=== PATIENT | male | born 1955 | race Caucasian/White ===

== ENCOUNTER 2017-02-22 14:21 | Emergency (ER) | payer OTHER ==
[2017-02-22] MEDS ORDERED: PROCHLORPERAZINE EDISYLATE INJ 10 MG/2 ML VIAL IV ONE (14:45)
[2017-02-22] MEDS ORDERED: DIPHENHYDRAMINE HCL 50 MG/ML VIAL IV ONE (14:45)
[2017-02-22] MEDS ORDERED: MECLIZINE HCL 25 MG TABLET PO ONE (14:46)
--- NOTE | 2017-02-22 14:48 | ER Document Report ---
ED Medical Screen (RME) - General Chief Complaint: Headache Stated Complaint: HEADACHE Time Seen by Provider: 02/22/17 14:40 Mode of Arrival: Ambulatory Information source: Patient Notes: 61 yr old male presents with complaints og headache dizziness. pt denies any fevers or chills I have greeted and performed a rapid initial assessment of this patient. A comprehensive ED assessment and evaluation of the patient, analysis of test results and completion of the medical decision making process will be conducted by additional ED providers. PHYSICAL EXAMINATION: GENERAL: Well-appearing, well-nourished and in no acute distress. HEAD: Atraumatic, normocephalic. EYES: Pupils equal round extraocular movements intact, conjunctiva are normal. ENT: Nares patent NECK: Normal range of motion LUNGS: No respiratory distress Musculoskeletal: Normal range of motion NEUROLOGICAL: Normal speech, normal gait. PSYCH: Normal mood, normal affect. SKIN: Warm, Dry, normal turgor, no rashes or lesions noted. TRAVEL OUTSIDE OF THE [place] IN LAST 30 DAYS: No - Related Data Allergies/Adverse Reactions: No Known Allergies Allergy (Verified 02/22/17 14:34) Past Medical History - Social History Chew tobacco use (# tins/day): No Frequency of alcohol use: Rare Drug Abuse: None - Past Medical History Cardiac Medical History: Reports: Hx Hypercholesterolemia Denies: Hx Coronary Artery Disease - high chol , Hx Heart Attack, Hx Hypertension Pulmonary Medical History: Denies: Hx Asthma, Hx Bronchitis, Hx COPD, Hx Pneumonia Neurological Medical History: Denies: Hx Cerebrovascular Accident, Hx Seizures Renal/ Medical History: Denies: Hx Peritoneal Dialysis Musculoskeltal Medical History: Denies Hx Arthritis Surgical Hx: Negative - Immunizations Hx Diphtheria, Pertussis, Tetanus Vaccination: Yes Physical Exam - Vital signs Vitals: Temp Pulse Resp BP Pulse Ox 97.8 F 55 L 18 132/89 H 99 02/22/17 14:24 02/22/17 14:24 02/22/17 14:24 02/22/17 14:24 02/22/17 14:24 Course - Vital Signs Vital signs: Temp Pulse Resp BP Pulse Ox 97.8 F 55 L 18 132/89 H 99 02/22/17 14:24 02/22/17 14:24 02/22/17 14:24 02/22/17 14:24 02/22/17 14:24
--- NOTE | 2017-02-22 15:32 | ER Document Report ---
ED Headache - General Chief Complaint: Headache Stated Complaint: HEADACHE Time Seen by Provider: 02/22/17 14:40 Mode of Arrival: Ambulatory Information source: Patient TRAVEL OUTSIDE OF THE [place] IN LAST 30 DAYS: No - HPI Patient complains to provider of: Headache Patient reports: No: Brain neoplasm, Frequent migraines, Hx chronic headaches, Occasional migraines, Prior CVA, Prior hemorrhage, Prior TBI, [employer] Shunt Onset: Last week Onset was: Gradual Timing: Still present - SEVERITY FLUCTUATES Quality of pain: Achy, Dull Severity: Moderate Context: denies: CO exposure, Head injury, Insect bite, Meningitis exposure, Tick bite Associated symptoms: Dizzy, Nausea/vomiting - NAUSEA ONLY, NO EMESIS, Trouble walking - ABLE TO WALK STRAIGHT LINE, BUT WITH EFFORT. denies: Chills, Confusion, Fever, Photophobia Similar symptoms previously: Yes - YEARS AGO, LASTED ABOUT A WEEK Recently seen / treated by doctor: No - Related Data Allergies/Adverse Reactions: No Known Allergies Allergy (Verified 02/22/17 14:34) Past Medical History - General Information source: Patient - Social History Smoking Status: Never Smoker Chew tobacco use (# tins/day): No Frequency of alcohol use: Rare Drug Abuse: None Lives with: Spouse/Significant other Family History: None Patient has suicidal ideation: No Patient has homicidal ideation: No - Past Medical History Cardiac Medical History: Reports: Hx Hypercholesterolemia Denies: Hx Coronary Artery Disease - high chol , Hx Heart Attack, Hx Hypertension Pulmonary Medical History: Denies: Hx Asthma, Hx Bronchitis, Hx COPD, Hx Pneumonia Neurological Medical History: Denies: Hx Cerebrovascular Accident, Hx Seizures Renal/ Medical History: Denies: Hx Peritoneal Dialysis Musculoskeltal Medical History: Denies Hx Arthritis Surgical Hx: Negative - Immunizations Hx Diphtheria, Pertussis, Tetanus Vaccination: Yes Hx Pneumococcal Vaccination: 06/23/10 Physical Exam - Vital signs Vitals: Temp Pulse Resp BP Pulse Ox 97.8 F 55 L 18 132/89 H 99 02/22/17 14:24 02/22/17 14:24 02/22/17 14:24 02/22/17 14:24 02/22/17 14:24 Interpretation: Bradycardic. No: Tachypneic, Febrile Course - Re-evaluation Re-evalutation: 02/22/17 19:50 Patient reports headache is somewhat improved. Results of laboratory and radiographic studies discussed with patient and spouse. Will continue hydration and medical therapies. - Vital Signs Vital signs: Temp Pulse Resp BP Pulse Ox 97.8 F 57 L 16 130/79 H 95 02/22/17 14:24 02/22/17 18:00 02/22/17 18:00 02/22/17 18:00 02/22/17 18:00 - Laboratory Result Diagrams: 02/22/17 15:03 02/22/17 15:03 Laboratory results interpreted by me: 02/22/17 15:03 Creatinine 1.28 H Est GFR (Non-Af Amer) 57 L - Diagnostic Test Radiology reviewed: Image reviewed, Reports reviewed Discharge - Discharge Clinical Impression: Headache Qualifiers: Headache type: unspecified Headache chronicity pattern: acute headache Intractability: not intractable Qualified Code(s): R51 - Headache Condition: Stable Disposition: HOME, SELF-CARE Instructions: Antinausea Medication ([facility]), Intravenous Compazine for Headaches ([facility]), Use of Diphenhydramine, Headache ([facility]), Toradol Injection ([facility]), Reglan ( [facility]) Additional Instructions: REST, DRINK PLENTY OF FLUIDS. YOU MAY TAKE ZOFRAN FOR NAUSEA CONTROL IF NEEDED. YOU MAY TAKE FIORICET FOR HEADACHE PAIN IF NEEDED. FOLLOW UP WITH DR. CHURCHILL IF HEADACHE IS NOT RESOLVED BY . RETURN TO E.R. IF YOU GET WORSE IN ANY WAY, ANY TIME. Prescriptions: Butalb/Acetaminophen/Caffeine [Fioricet (50-325-40 mg) Tablet] 1 - 2 tab PO Q4H PRN #20 each PRN Reason: For Headache Ondansetron [Zofran Odt 4 mg Tablet] 1 - 2 tab PO Q4H #10 tab.rapdis Referrals: MITUL CHURCHILL MD [Primary Care Provider] - Follow up as needed
[2017-02-22 15:33] LABS: ABSOLUTE BASOPHILS # (AUTO) 0.1 10^3/uL (0.0-0.2); ABSOLUTE EOSINOPHILS # (AUTO) 0.3 10^3/uL (0.0-0.6); ABSOLUTE LYMPHOCYTES (AUTO) 2.7 10^3/uL (0.5-4.7); ABSOLUTE MONOCYTES (AUTO) 0.6 10^3/uL (0.1-1.4); BASOPHILS % (AUTO) 0.8 % (0-2); EOSINOPHILS % (AUTO) 4.1 % (0-6); HEMATOCRIT 40.3 % (37.9-51.0); HEMOGLOBIN 13.5 g/dL (13.5-17.0); HGB HCT DIFFERENCE 0.2; LYMPHOCYTES % (AUTO) 40.1 % (13-45); MEAN CORPUSCULAR HGB CONC 33.5 g/dL (32.0-36.0); MEAN CORPUSCULAR VOLUME 92 fl (80-97); MONOCYTES % (AUTO) 9.6 % (3-13); RED BLOOD COUNT 4.37 10^6/uL (4.35-5.55); RED CELL DISTRIBUTION WIDTH 13.3 % (11.5-14.0); SEGMENTED NEUTROPHILS % (AUTO) 45.4 % (42-78); WHITE BLOOD COUNT 6.7 10^3/uL (4.0-10.5)
[2017-02-22 15:49] LABS: APPEARANCE,URINE CLEAR; BILIRUBIN,URINE NEGATIVE (NEGATIVE); GLUCOSE, URINE NEGATIVE (NEGATIVE); KETONES,URINE NEGATIVE (NEGATIVE); LEUKOCYTE ESTERASE,URINE NEGATIVE (NEGATIVE); NITRITE,URINE NEGATIVE (NEGATIVE); PROTEIN,URINE NEGATIVE (NEGATIVE); URINE SPECIFIC GRAVITY 1.008; UROBILINOGEN,URINE NEGATIVE mg/dL (<2.0)
[2017-02-22] MEDS ORDERED: NORMAL SALINE 1000 ML 1,000 ML IV ONE ×2 (15:49→19:48)
[2017-02-22 15:51] LABS: ALANINE AMINOTRANSFERASE 35 U/L (21-72); ALBUMIN 4.1 g/dL (3.5-5.0); ALKALINE PHOSPHATASE 55 U/L (38-126); ANION GAP 9 (5-19); ASPARTATE AMINO TRANSFERASE 31 U/L (17-59); BILIRUBIN,DIRECT 0.3 mg/dL (0.0-0.4); BILIRUBIN,TOTAL 0.5 mg/dL (0.2-1.3); BLOOD UREA NITROGEN 19 mg/dL (7-20); CALCIUM 9.6 mg/dL (8.4-10.2); CARBON DIOXIDE 30 mmol/L (22-30); CHLORIDE 102 mmol/L (98-107); CREATINE KINASE 81 U/L (55-170); CREATININE RESULT 1.28 mg/dL (0.52-1.25); GLUCOSE 93 mg/dL (75-110); POTASSIUM 4.8 mmol/L (3.6-5.0); SODIUM 141.3 mmol/L (137-145); TOTAL PROTEIN 6.8 g/dL (6.3-8.2)
[2017-02-22 16:04] LABS: TROPONIN I < 0.012 ng/mL
--- NOTE | 2017-02-22 17:33 | RADIOLOGY REPORT (SQ) ---
EXAM DESCRIPTION: CT HEAD COMBO COMPLETED DATE/TIME: 02/22/2017 5:22 pm REASON FOR STUDY: headache COMPARISON: None. TECHNIQUE: Axial images acquired through the brain without and with intravenous contrast. Images re viewed with bone, brain and subdural windows. Images stored on PACS. All CT scanners at this facility use dose modulation, iterative reconstruction, and/or weight based d osing when appropriate to reduce radiation dose to as low as reasonably achievable (ALARA). [facility]: Dose Right [facility]: CareDose [facility]: Dose Right [facility]: Teradose 4D [facility]: [employer], CONTRAST TYPE AND DOSE: contrast/concentration: Isovue 370.00 mg/ml; Total Contrast Delivered: 49.0 ml; Total Saline Delivered: 47.0 ml RENAL FUNCTION: Creatinine 1.3 RADIATION DOSE: Up-to-date CT equipment and radiation dose reduction techniques were employed. CTDIv ol: 64.6 mGy. DLP: 2584 mGy-cm.. LIMITATIONS: None. FINDINGS: VENTRICLES: Normal size and contour. CEREBRUM: No masses. No hemorrhage. No midline shift. Normal saenz/white matter differentiation. No ev idence for acute infarction. No enhancing lesions. CEREBELLUM: No masses. No hemorrhage. No alteration of density. No evidence for acute infarction. No enhancing lesions. EXTRA-AXIAL SPACES: No fluid collections. No enhancing lesions. ORBITS AND GLOBE: No intra- or extraconal masses. Normal contour of globe without masses. CALVARIUM: No fracture. PARANASAL SINUSES: No fluid or mucosal thickening. SOFT TISSUES: No mass or hematoma. OTHER: No other significant finding. IMPRESSION: NORMAL BRAIN CT WITHOUT AND WITH CONTRAST. TECHNICAL DOCUMENTATION: JOB ID: [id number] Quality ID # [id number]: Final reports with documentation of one or more dose reduction techniques (e.g., Au tomated exposure control, adjustment of the mA and/or kV according to patient size, use of iterative reconstruction technique) 2010 [employer]- All Rights Reserved
[2017-02-22 18:13] VITALS: BP 130/79
[2017-02-22] MEDS ORDERED: KETOROLAC TROMETHAMINE INJ/PF 30 MG/1 ML SDV IV ONE (19:48)
[2017-02-22] MEDS ORDERED: METOCLOPRAMIDE HCL INJ/PF 10 MG/2 ML SDV IV ONE (19:49)
== END 2017-02-22 22:07 | disposition home or self-care (01) ==
LOC: ER 14:21
DX: R51 Headache (principal)
CPT/HCPCS: 99284; 96361; 96374; 96375; 36415; 82553; 82550; 85025; 80053; 81001; 84484; 70470; J1200; J1885; J2765; J0780; J7030

== ENCOUNTER → 2018-12-01 | Outpatient (CLI) | payer OTHER ==
--- NOTE | 2018-12-01 15:46 | RADIOLOGY REPORT (SQ) ---
EXAM DESCRIPTION: VENOUS BILATERAL LOWER COMPLETED DATE/TIME: 12/01/2018 3:37 pm REASON FOR STUDY: EDEMA R60.0 LOCALIZED EDEMA M79.10 MYALGIA, UNSPECIFIED SITE COMPARISON: None. TECHNIQUE: Dynamic and static saenz scale and color images acquired of both lower extremity venous sy stems. Selected spectral images acquired with additional compression and augmentation maneuvers. Imag es stored on PACS. LIMITATIONS: None. FINDINGS: RIGHT LEG COMMON FEMORAL AND FEMORAL: Normal phasicity, compression and augmentation. No visualized echogenic m aterial on saenz scale. No defects on color images. POPLITEAL: Normal compression and augmentation. No visualized echogenic material on saenz scale. No de fects on color images. CALF VESSELS: Normal compression and augmentation. No visualized echogenic material on saenz scale. No defects on color image. GSV AND SSV: Normal compression. No visualized echogenic material on saenz scale. No defects on color images. ANY DEEP VENOUS INSUFFICIENCY: No. ANY EVIDENCE OF POPLITEAL CYST: No. OTHER: No other significant finding. LEFT LEG COMMON FEMORAL AND FEMORAL: Normal phasicity, compression and augmentation. No visualized echogenic m aterial on saenz scale. No defects on color images. POPLITEAL: Normal compression and augmentation. No visualized echogenic material on saenz scale. No de fects on color images. CALF VESSELS: Normal compression and augmentation. No visualized echogenic material on saenz scale. No defects on color images. GSV AND SSV: Normal compression. No visualized echogenic material on saenz scale. No defects on color images. ANY DEEP VENOUS INSUFFICIENCY: No. ANY EVIDENCE POPLITEAL CYST: No. OTHER: No other significant finding. IMPRESSION: NO EVIDENCE DVT OR SVT IN EITHER LEG. COMMENT: Preliminary report was called by the technologist to the referring clinician's office at th e time of the exam. TECHNICAL DOCUMENTATION: JOB ID: [id number] [employer]- All Rights Reserved Reading location - IP/workstation name: [email or web address]
== END ==
LOC: RAD 13:17
PROVIDERS: ATTEND Student in an Organized Health Care Education/Training Program
DX: R60.0 Localized edema (principal); M79.10 Myalgia, unspecified site
CPT/HCPCS: 93970

== ENCOUNTER 2019-03-25 09:21 | Inpatient (IN) | payer OTHER ==
[2019-03-25] MEDS ORDERED: NORMAL SALINE 250 ML IV PRN ×3 (09:26→10:52)
[2019-03-25] MEDS ORDERED: NORMAL SALINE 500 ML IV ONE (09:26)
--- NOTE | 2019-03-25 09:30 | ER Document Report ---
ED General - General Chief Complaint: Unresponsive Stated Complaint: UNRESPONSIVE Time Seen by Provider: 03/25/19 09:26 TRAVEL OUTSIDE OF THE [place] IN LAST 30 DAYS: No - HPI Notes: 61-year-old male presents with rectal bleeding and syncope. Patient brought by EMS, initially found unresponsive in his vehicle with a large amount of blood in the car seat. Apparently began to develop left lower quadrant pain and rectal bleeding last night, otherwise unquantified. States last week he had some hematuria that he underwent work-up for his an outpatient including a CT which she cannot report the results of but he states were "okay". Pain is sharp, gradual onset. He feels weak lightheaded. Denies any use of anticoagulants. No other modifying factors, no other associated symptoms, no other provocative or palliative factors. - Related Data Allergies/Adverse Reactions: No Known Allergies Allergy (Verified 02/22/17 14:34) Past Medical History - Social History Smoking Status: Unknown if Ever Smoked Drug Abuse: None Family History: None, Reviewed & Not Pertinent - Medical History Notes: Includes migraine headaches - Past Medical History Cardiac Medical History: Reports: Hx Hypercholesterolemia Denies: Hx Coronary Artery Disease - high chol , Hx Heart Attack, Hx Hypertension Pulmonary Medical History: Denies: Hx Asthma, Hx Bronchitis, Hx COPD, Hx Pneumonia Neurological Medical History: Denies: Hx Cerebrovascular Accident, Hx Seizures Renal/ Medical History: Denies: Hx Peritoneal Dialysis Musculoskeletal Medical History: Denies Hx Arthritis - Immunizations Hx Diphtheria, Pertussis, Tetanus Vaccination: Yes Hx Pneumococcal Vaccination: 06/23/10 Review of Systems - Review of Systems Notes: Review of systems as in the history of present illness, otherwise negative x 10 systems. Physical Exam - Vital signs Vitals: Resp 9 L 03/25/19 09:23 - Notes Notes: General: Well developed . HEENT: Normocephalic, atraumatic. Pupils equal round reactive to light. No JVD. Pale conjunctiva Chest: No trauma. Respiratory: Good air exchange, normal excursion. Cardiac: Regular rhythm. No murmurs or gallops. Abdomen: Soft, benign. Left lower quadrant moderately tender Back: No asymmetry or gross abnormality. Motor: Grossly normal power and tone. Neurologic: Alert, nonfocal. Cranial nerves II-12 are intact. Sensation intact. Vascular: Well perfused. Normal peripheral pulses. Skin: No petechiae or purpura. Course - Re-evaluation Re-evalutation: 03/25/19 09:30 3-year-old male presents with syncope and GI bleeding, clinical evidence of likely shock and hypotension. Appears to be compensated at this point. Large- bore IV access x2 is obtained. Plan proceed with volume resuscitation, packed red cells, conference of tawana guerrero, radiographic evaluation, reevaluate. 03/25/19 13:41 Labs reviewed, hemoglobin 9.9, most recent comparison from 2014 is 13. I suspect he is simply not hemodiluted out yet. Elevated creatinine at 1.2. Patient had several more episodes of transient alteration in mental status without any underlying arrhythmia. Blood pressure has been marginal at hovering between 92 and 110 systolic, map is been 70+. Clinically, patient has had continued GI bleeding and had a large bloody bowel movement while in the ED. He is being transfused empirically with packed red cells, will be admitted to the hospital service for continued evaluation, trending his hemoglobin, and likely colonoscopy. - Vital Signs Vital signs: Temp Pulse Resp BP Pulse Ox 98.2 F 77 16 100/66 98 03/25/19 12:52 03/25/19 12:52 03/25/19 12:52 03/25/19 12:52 03/25/19 12:52 - Laboratory Result Diagrams: 03/25/19 09:26 03/25/19 09:26 Laboratory results interpreted by me: 03/25/19 03/25/19 03/25/19 09:26 09:26 09:26 RBC 3.24 L Hgb 9.9 L Hct 29.7 L Lymph % (Auto) 46.6 H PT 15.8 H Chloride 111 H BUN 22 H Creatinine 1.27 H Est GFR (MDRD) Non-Af 57 L Glucose 132 H Calcium 7.9 L Alkaline Phosphatase 36 L Total Protein 5.5 L Albumin 3.0 L Crossmatch 03/25/19 09:26 RBC Hgb Hct Lymph % (Auto) PT Chloride BUN Creatinine Est GFR (MDRD) Non-Af Glucose Calcium Alkaline Phosphatase Total Protein Albumin Crossmatch See Detail - EKG Interpretation by Me EKG shows normal: Sinus rhythm, [place], Intervals, QRS Complexes Critical Care Note - Critical Care Note Total time excluding time spent on procedures (mins): 30 Comments: Does not include time spent for procedures. This includes resuscitation of patient with critical GI bleed, syncope, evaluation of labs, radiographs, EKGs, serial exams and discussing the case with admitting consultants. Discharge - Discharge Clinical Impression: GI bleed Qualifiers: GI bleed type/associated pathology: melena Qualified Code(s): K92.1 - Melena Condition: Serious Disposition: ADMITTED INPATIENT Admitting Provider: Hayden (Hospitalist) Unit Admitted: [facility]
[2019-03-25 09:39] LABS: ABSOLUTE EOSINOPHILS # (AUTO) 0.3 10^3/uL (0.0-0.6); ABSOLUTE LYMPHOCYTES (AUTO) 4.1 10^3/uL (0.5-4.7); ABSOLUTE MONOCYTES (AUTO) 0.5 10^3/uL (0.1-1.4); ABSOLUTE NEUT (AUTO) 3.9 10^3/uL (1.7-8.2); BASOPHILS % (AUTO) 0.5 % (0-2); EOSINOPHILS % (AUTO) 3.1 % (0-6); HEMATOCRIT 29.7 % (37.9-51.0); HEMOGLOBIN 9.9 g/dL (13.5-17.0); LYMPHOCYTES % (AUTO) 46.6 % (13-45); MEAN CORPUSCULAR HEMOGLOBIN 30.7 pg (27.0-33.4); MEAN CORPUSCULAR HGB CONC 33.4 g/dL (32.0-36.0); MEAN CORPUSCULAR VOLUME 92 fl (80-97); MONOCYTES % (AUTO) 5.8 % (3-13); PLATELET COUNT 185 10^3/uL (150-450); RED BLOOD COUNT 3.24 10^6/uL (4.35-5.55); RED CELL DISTRIBUTION WIDTH 13.1 % (11.5-14.0); TOTAL CELLS COUNTED % (AUTO) 100 %; WHITE BLOOD COUNT 8.9 10^3/uL (4.0-10.5)
[2019-03-25 09:48] LABS: INTERNATIONAL RATION (INR) 1.25; PROTHROMBIN TIME 15.8 SEC (11.4-15.4)
[2019-03-25 09:58] LABS: ALKALINE PHOSPHATASE 36 U/L (38-126); ANION GAP 6 (5-19); ASPARTATE AMINO TRANSFERASE 17 U/L (17-59); BILIRUBIN,TOTAL 0.5 mg/dL (0.2-1.3); BLOOD UREA NITROGEN 22 mg/dL (7-20); CALCIUM 7.9 mg/dL (8.4-10.2); CARBON DIOXIDE 22 mmol/L (22-30); CHLORIDE 111 mmol/L (98-107); GLUCOSE 132 mg/dL (75-110); POTASSIUM 3.7 mmol/L (3.6-5.0); TOTAL PROTEIN 5.5 g/dL (6.3-8.2)
--- NOTE | 2019-03-25 09:59 | RADIOLOGY REPORT (SQ) ---
EXAM DESCRIPTION: CHEST SINGLE VIEW COMPLETED DATE/TIME: 03/25/2019 9:50 am REASON FOR STUDY: Hypotension COMPARISON: None. EXAM PARAMETERS: NUMBER OF VIEWS: One view. TECHNIQUE: Single frontal radiographic view of the chest acquired. RADIATION DOSE: NA LIMITATIONS: None. FINDINGS: LUNGS AND PLEURA: No opacities, masses or pneumothorax. No pleural effusion. MEDIASTINUM AND HILAR STRUCTURES: No masses. Contour normal. HEART AND VASCULAR STRUCTURES: Heart normal in size. Normal vasculature. BONES: No acute findings. HARDWARE: None in the chest. OTHER: No other significant finding. IMPRESSION: NO ACUTE RADIOGRAPHIC FINDING IN THE CHEST. TECHNICAL DOCUMENTATION: JOB ID: [id number] [employer]- All Rights Reserved Reading location - IP/workstation name: [email or web address]
[2019-03-25] MEDS ORDERED: MIDAZOLAM 2 MG/2 ML INJ IV ONE ×12 (11:08→23:14)
[2019-03-25] MEDS ORDERED: FENTANYL CITRATE INJ/PF 100 MCG/2 ML AMPUL INJ ONE ×6 (11:09→23:13)
--- NOTE | 2019-03-25 12:26 | PDOC H&P ---
History of Present Illness Admission Date/PCP: 03/25/19 11:07 VENKAT PHILLIPS DO Patient complains of: Patient reports an episode of blood per rectum. Today it was associated with a syncopal episode. History of Present Illness: NAKITA VICTOR is a 63 year old male Past Medical History Cardiac Medical History: Reports: Hyperlipidema Denies: Coronary Artery Disease - high chol , Myocardial Infarction, Hypertension Pulmonary Medical History: Denies: Asthma, Bronchitis, Chronic Obstructive Pulmonary Disease (COPD), Pneumonia EENT Medical History: Denies: Ears, Nose, Throat Neurological Medical History: Reports: Migraine Denies: Seizures Endocrine Medical History: Denies: Diabetes Mellitus Type 2, Hypothyroidism Renal/ Medical History: Reports: Other - Hematuria with possible prostatic hyperplasia Denies: Chronic Kidney Disease, Nephrolithiasis Malignancy Medical History: Reports: None GI Medical History: Reports: Gastroesophageal Reflux Disease Musculoskeltal Medical History: Denies: Arthritis, Gout Skin Medical History: Denies: Eczema, Psoriasis Psychiatric Medical History: Denies: Alcohol Dependency, Depression, Substance Abuse, Tobacco Dependency Traumatic Medical History: Reports: None Hematology: Denies: Anemia, Bleeding Tendencies Infectious Medical History: Reports: None Past Surgical History Past Surgical History: Reports: Tonsillectomy, Other - Cystoscopy, colonoscopy Social History Information Source: Patient, Relative - Lives with: Family Smoking Status: Never Smoker Frequency of Alcohol Use: Occasional Hx Recreational Drug Use: No Hx Prescription Drug Abuse: No - Advance Directive Resuscitation Status: Full Code Surrogate healthcare decision maker:: The patient has been working on a living well at home. Please see ACP note. Family History Family History: CAD, COPD Parental Family History Reviewed: Yes Children Family History Reviewed: Yes Sibling(s) Family History Reviewed.: Yes Medication/Allergy Allergies/Adverse Reactions: No Known Allergies Allergy (Verified 02/22/17 14:34) Review of Systems Constitutional: PRESENT: anorexia, headache(s), weakness. ABSENT: fever(s), weight gain, weight loss Eyes: ABSENT: visual disturbances Ears: ABSENT: hearing changes Nose, Mouth, and Throat: ABSENT: headache(s), mouth pain, sore throat Cardiovascular: ABSENT: chest pain, dyspnea on exertion, edema, palpitations Respiratory: ABSENT: cough, dyspnea, hemoptysis Gastrointestinal: PRESENT: abdominal pain, constipation, melena, nausea, other - Reflux. ABSENT: vomiting Genitourinary: PRESENT: hematuria. ABSENT: difficulty urinating, dysuria Musculoskeletal: ABSENT: back pain, deformity, joint swelling Integumentary: ABSENT: diaphoresis, erythema, lesions, pruritus, rash, wounds Neurological: PRESENT: syncope - Secondary to blood loss. ABSENT: abnormal gait, abnormal speech, confusion, focal weakness, memory loss Psychiatric: ABSENT: anxiety, depression, hallucinations Endocrine: ABSENT: cold intolerance, heat intolerance, polydipsia, polyphagia, p olyuria Hematologic/Lymphatic: ABSENT: easy bleeding, easy bruising, lymphadenopathy Allergic/Immunologic: ABSENT: seasonal rhinorrhea Physical Exam Vital Signs: Temp Pulse Resp BP Pulse Ox 97.9 F 10 L 91/72 L 100 03/25/19 09:34 03/25/19 09:24 03/25/19 09:24 03/25/19 09:24 Intake & Output 03/24/19 03/25/19 03/26/19 06:59 06:59 06:59 Intake Total 500 Balance 500 Weight 83.7 kg General appearance: PRESENT: cooperative, mild distress, well-developed. ABSENT: obese Head exam: PRESENT: atraumatic, normocephalic Eye exam: PRESENT: conjunctiva pale, EOMI. ABSENT: scleral icterus Ear exam: PRESENT: normal external ear exam. ABSENT: bleeding, drainage Mouth exam: PRESENT: dry mucosa, tongue midline Teeth exam: ABSENT: poor dentation Neck exam: PRESENT: full ROM. ABSENT: lymphadenopathy, tenderness, tracheostomy Respiratory exam: PRESENT: symmetrical, unlabored. ABSENT: accessory muscle use, rales, rhonchi, tachypnea, wheezes Cardiovascular exam: PRESENT: RRR, +S1, +S2 GI/Abdominal exam: PRESENT: normal bowel sounds, soft, tenderness - Minimal in the lower abdomen. No epigastric discomfort.. ABSENT: distended, guarding Rectal exam: PRESENT: deferred Gentrourinary exam: ABSENT: indwelling catheter Extremities exam: PRESENT: full ROM. ABSENT: joint swelling, pedal edema, tenderness Musculoskeletal exam: PRESENT: ambulatory, full ROM, normal inspection Neurological exam: PRESENT: alert, awake, oriented to person, oriented to place, oriented to time, oriented to situation, CN II-XII grossly intact. ABSENT: motor sensory deficit Psychiatric exam: PRESENT: anxious - Somewhat anxious about current situation. Affect reflects his anxiety., appropriate affect. ABSENT: agitated Focused psych exam: ABSENT: delusional, restlessness Skin exam: PRESENT: dry, pallor, warm. ABSENT: rash Results Laboratory Results: 03/25/19 09:26 03/25/19 09:26 03/25/19 03/25/19 03/25/19 09:26 09:26 09:26 WBC 8.9 RBC 3.24 L Hgb 9.9 L Hct 29.7 L MCV 92 MCH 30.7 MCHC 33.4 RDW 13.1 Plt Count 185 Seg Neutrophils % 44.0 Sodium 138.8 Potassium 3.7 Chloride 111 H Carbon Dioxide 22 Anion Gap 6 BUN 22 H Creatinine 1.27 H Est GFR ( Amer) > 60 Glucose 132 H Calcium 7.9 L Total Bilirubin 0.5 AST 17 Alkaline Phosphatase 36 L Total Protein 5.5 L Albumin 3.0 L Blood Type A POSITIVE Antibody Screen NEGATIVE Impressions: Chest X-Ray 03/25/19 09:26 IMPRESSION: NO ACUTE RADIOGRAPHIC FINDING IN THE CHEST. Assessment and Plan - Diagnosis (1) GI bleed Qualifiers: GI bleed type/associated pathology: melena Qualified Code(s): K92.1 - Melen a Is this a current diagnosis for this admission?: Yes (2) Melena Is this a current diagnosis for this admission?: Yes (3) Acute blood loss anemia Is this a current diagnosis for this admission?: Yes (4) Syncope Qualifiers: Syncope type: unspecified Qualified Code(s): R55 - Syncope and collapse Is this a current diagnosis for this admission?: Yes (5) Hyperlipidemia Qualifiers: Hyperlipidemia type: pure hypercholesterolemia Qualified Code(s): E78.00 - Pure hypercholesterolemia, unspecified; E78.0 - Pure hypercholesterolemia Is this a current diagnosis for this admission?: Yes (6) Migraines Qualifiers: Migraine type: unspecified Status migrainosus presence: without status migrainosus Intractability: not intractable Qualified Code(s): G43.909 - Migraine, unspecified, not intractable, without status migrainosus Is this a current diagnosis for this admission?: Yes - Plan Summary Summary: Gastrointestinal bleed-the patient reports ongoing history of hematuria for which he is seeing his urologist. He has been struggling with constipation over the last several weeks. He has been using glycerin suppositories with good effect and initiated therapy with MiraLAX 4 days ago. Last night he reports having a large BM with dark-colored blood. He was feeling weak and poorly. He did not have any vomiting. He did have some crampy abdominal pain. He rested at home. He did not report any lightheadedness, dizziness or passing out. Today when they were dropping a car off at the [employer] dealership the patient had another large melanotic stool while sitting in the car waiting for his . She found him unconscious. The syncope was most likely related to acute blood loss. He has had several more bowel movements. He does not report significant abdominal pain except when crampy pain occurs indicating an oncoming bowel movement. He has not had any vomiting. He does not take anti-inflammatory drugs on a regular basis. He is not on steroids. He does take omeprazole fairl y regularly. His hemoglobin is decreased and with IV fluids I expect another significant drop. 2 units of packed red blood cells have already been ordered. He may need more. Consult was placed with Dr. Espinoza. I will keep the patient n.p.o. at this time and allow ice chips. We will hold his medications for this evening and likely be able to resume tomorrow. I explained the different presentations with upper and lower GI bleeding. The patient clearly states that the blood is dark. He did not report any clots. I will start Syncope-it is likely that the patient had a syncopal episode from acute blood loss causing hypotension. His blood pressure is borderline in the emergency department with a map at above 70. We will continue to monitor closely. Aggressive fluids and hydration are ordered. Hyperlipidemia-we will continue the atorvastatin 20 mg daily starting tomorrow night. Migraine headaches-the patient is on Trokendi XR 100 mg every evening for migraine prophylaxis. We will likely hold tonight's dose in anticipation of procedure. Will resume medication tomorrow. The patient will need to use his own as I do not believe this is on formulary. The patient is also on vitamins. We will await his GI bleeding work-up before resuming therapy. - Time Time Spent with patient: 35 or more minutes Medications reviewed and adjusted accordingly: Yes - Inpatient Certification Based on my medical assessment, after consideration of the patient's comorbidities, presenting symptoms, or acuity I expect that the services needed warrant INPATIENT care.: Yes I certify that my determination is in accordance with my understanding of Medicare's requirements for reasonable and necessary INPATIENT services [42 CFR 412.3e].: Yes Medical Necessity: Need Close Monitoring Due to Risk of Patient Decompensation, Need For IV Fluids, Need For Continuous Telemetry Monitoring, Other - Transfusion Post Hospital Care: D/C Mechanical Cad Drafter Documentation
--- NOTE | 2019-03-25 12:27 | ADVANCED CARE ---
- Diagnosis (1) GI bleed Diagnosis Current: Yes (2) Melena Diagnosis Current: Yes (3) Acute blood loss anemia Diagnosis Current: Yes (4) Syncope Diagnosis Current: Yes (5) Hyperlipidemia Diagnosis Current: Yes (6) Migraines Diagnosis Current: Yes Attendance: Patient, his as well as another couple. Resuscitation Status: Full Code Discussion: The patient indicated that he has started the paperwork for living well. We reviewed the healthcare proxy document contained in the admissions packet. I explained the ability to designated decision maker as well as a secondary decision maker. We also reviewed the fact that intubation and resuscitation is an immediate decision and this document will help with regard to ongoing treatment in the event that there is poor recovery. The patient states that he will work on this document during this hospitalization. Care Planning Goals: Complete healthcare proxy Document(s) Completed: None yet Time Spent: 20 minutes
[2019-03-25] MEDS ORDERED: NORMAL SALINE 1000 ML 1,000 ML IV PRN (13:01)
[2019-03-25] MEDS ORDERED: ONDANSETRON 4 MG TAB.RAPDIS PO PRN (13:05)
[2019-03-25] MEDS ORDERED: TEMAZEPAM 15 MG CAPSULE PO PRN (13:05)
[2019-03-25] MEDS ORDERED: PANTOPRAZOLE SODIUM 40 MG VIAL IV PRN (13:14)
[2019-03-25] MEDS ORDERED: NORMAL SALINE 100 ML with PANTOPRAZOLE SODIUM 80 MG IV PRN ×2 (13:22)
--- NOTE | 2019-03-25 14:22 | PDOC PROGRESS REPORT ---
Subjective Progress Note for:: 03/25/19 Subjective:: ICU Progress Note. Pt was transferred to the ICU after a rapid response was called. Pt is a 63 yo man who was admitted today for syncope due to acute blood loss anemia from an active GI bleed. He continues to have active bleeding and passing bloody stools and having BRBPR. He was also hypotenisive with an SBP in the 80s. Pt is getting his second unit of PRBC and is SBP is now in the 110s. He is currently awake and alert. Reason For Visit: GI BLEED Physical Exam Vital Signs: Temp Pulse Resp BP Pulse Ox 98.2 F 80 16 93/64 L 99 03/25/19 13:41 03/25/19 13:41 03/25/19 13:41 03/25/19 13:41 03/25/19 13:41 Intake & Output 03/24/19 03/25/19 03/26/19 06:59 06:59 06:59 Intake Total 500 Balance 500 Weight 82.7 kg General appearance: PRESENT: well-developed, well-nourished, other - pale appearing Head exam: PRESENT: atraumatic, normocephalic Respiratory exam: PRESENT: clear to auscultation anitha, unlabored Cardiovascular exam: PRESENT: RRR GI/Abdominal exam: PRESENT: soft - non-tender, non-distended Extremities exam: PRESENT: other - no edema Results Laboratory Results: 03/25/19 09:26 03/25/19 09:26 03/25/19 03/25/19 03/25/19 09:26 09:26 09:26 WBC 8.9 RBC 3.24 L Hgb 9.9 L Hct 29.7 L MCV 92 MCH 30.7 MCHC 33.4 RDW 13.1 Plt Count 185 Seg Neutrophils % 44.0 Sodium 138.8 Potassium 3.7 Chloride 111 H Carbon Dioxide 22 Anion Gap 6 BUN 22 H Creatinine 1.27 H Est GFR ( Amer) > 60 Glucose 132 H Calcium 7.9 L Total Bilirubin 0.5 AST 17 Alkaline Phosphatase 36 L Total Protein 5.5 L Albumin 3.0 L Blood Type A POSITIVE Antibody Screen NEGATIVE Impressions: Chest X-Ray 03/25/19 09:26 IMPRESSION: NO ACUTE RADIOGRAPHIC FINDING IN THE CHEST. Assessment & Plan - Diagnosis (1) Acute blood loss anemia Is this a current diagnosis for this admission?: Yes (2) GI bleed Qualifiers: GI bleed type/associated pathology: melena Qualified Code(s): K92.1 - Melena Is this a current diagnosis for this admission?: Yes (3) Hemorrhagic shock Is this a current diagnosis for this admission?: Yes Provider Note Provider Note: Assessment: Critically ill 63 yo man with hemorrhagic shock, acute blood loss anemia, acute GI bleed. Plan: 1. Respiratory: stable on nasal cannula. Will monitor respiratory status closely 2. CV: hypotension due to hemorrhagic shock from GI bleed. Pt is getting his second unit of PRBC. SBP is currently in the 110s 3. GI/Surgery: acute GI bleed, hemorrhagic shock. Surgery consulted. Will order a stat CT of abdomen and pelvis. Continue protonix drip 4. Heme: acute blood loss anemia. getting his second unit of PRBC. Will repeat an h/h and transfuse as neccessary 5. Nutrition: NPO 6. Prophylaxis: scds. No pharmacologic DVT prophylaxis due to acute bleeding. Critical care time= 50 min, excluding procedures
[2019-03-25] MEDS ORDERED: NORMAL SALINE 1000 ML 1,000 ML IV ONE (14:30)
--- NOTE | 2019-03-25 16:26 | PDOC CONSULTATION ---
Consultation Consult Date: 03/25/19 Provider Consulted: GYPSY MATUTE History of Present Illness Admission Date/PCP: 03/25/19 11:07 VENKAT PHILLIPS DO Patient complains of: Blood per rectum History of Present Illness: NAKITA VICTOR is a 63 year old male usual state of good health up until 2 days ago when he noted a large bowel movement consisting of very dark blood. No abdominal pain. No hematemesis. Patient has had subsequent further episodes of blood per rectum but in much smaller amounts. Patient has had presyncopal symptoms. He says he drinks up to couple of beers a day. No known history of cirrhosis. Patient is not on anticoagulation other than a daily aspirin. He occasionally uses NSAIDs for arthritis. No history of gastrointestinal bleed in the past. No family history of gastrointestinal malignancies. Past Medical History Cardiac Medical History: Reports: Hyperlipidema Denies: Coronary Artery Disease - high chol , Myocardial Infarction, Hypertension Pulmonary Medical History: Denies: Asthma, Bronchitis, Chronic Obstructive Pulmonary Disease (COPD), Pneumonia EENT Medical History: Denies: Ears, Nose, Throat Neurological Medical History: Reports: Migraine Denies: Seizures Endocrine Medical History: Denies: Diabetes Mellitus Type 2, Hypothyroidism Renal/ Medical History: Reports: Other - Hematuria with possible prostatic hyperplasia Denies: Chronic Kidney Disease, Nephrolithiasis Malignancy Medical History: Reports: None GI Medical History: Reports: Gastroesophageal Reflux Disease Musculoskeltal Medical History: Denies: Arthritis, Gout Skin Medical History: Denies: Eczema, Psoriasis Psychiatric Medical History: Denies: Alcohol Dependency, Depression, Substance Abuse, Tobacco Dependency Traumatic Medical History: Reports: None Hematology: Denies: Anemia, Bleeding Tendencies Infectious Medical History: Reports: None Past Surgical History Past Surgical History: Reports: Tonsillectomy, Other - Surgery for benign prostate disease. Social History Lives with: Family Smoking Status: Unknown if Ever Smoked Electronic Cigarette use?: No Frequency of Alcohol Use: Heavy - Couple of beers a day Hx Recreational Drug Use: No Drugs: None Hx Prescription Drug Abuse: No - Advance Directive Resuscitation Status: Full Code Family History Family History: None, Reviewed & Not Pertinent Parental Family History Reviewed: Yes Children Family History Reviewed: Yes Sibling(s) Family History Reviewed.: Yes Medication/Allergy Allergies/Adverse Reactions: No Known Allergies Allergy (Verified 02/22/17 14:34) Review of Systems All systems: reviewed and no additional remarkable complaints except as stated Constitutional: PRESENT: as per HPI Gastrointestinal: PRESENT: as per HPI Physical Exam Vital Signs: Temp Pulse Resp BP Pulse Ox 97.1 F 101 H 15 85/63 L 100 03/25/19 16:13 03/25/19 16:13 03/25/19 16:13 03/25/19 16:13 03/25/19 16:13 Intake & Output 03/24/19 03/25/19 03/26/19 06:59 06:59 06:59 Intake Total 550 Balance 550 Weight 82.7 kg General appearance: PRESENT: no acute distress, cooperative Eye exam: PRESENT: conjunctiva pink Neck exam: PRESENT: other - Supple with no masses and no tenderness Respiratory exam: PRESENT: clear to auscultation anitha Cardiovascular exam: PRESENT: RRR GI/Abdominal exam: PRESENT: other - Soft, nondistended, nontender to palpation. No palpable hepatosplenomegaly. No stigmata of portal hypertension. Neurological exam: PRESENT: alert, awake Psychiatric exam: PRESENT: appropriate affect Results Laboratory Results: 03/25/19 09:26 03/25/19 09:26 03/25/19 03/25/19 03/25/19 09:26 09:26 09:26 WBC 8.9 RBC 3.24 L Hgb 9.9 L Hct 29.7 L MCV 92 MCH 30.7 MCHC 33.4 RDW 13.1 Plt Count 185 Seg Neutrophils % 44.0 Sodium 138.8 Potassium 3.7 Chloride 111 H Carbon Dioxide 22 Anion Gap 6 BUN 22 H Creatinine 1.27 H Est GFR ( Amer) > 60 Glucose 132 H Calcium 7.9 L Total Bilirubin 0.5 AST 17 Alkaline Phosphatase 36 L Total Protein 5.5 L Albumin 3.0 L Blood Type A POSITIVE Antibody Screen NEGATIVE Impressions: Chest X-Ray 03/25/19 09:26 IMPRESSION: NO ACUTE RADIOGRAPHIC FINDING IN THE CHEST. Assessment & Plan - Diagnosis (1) GI bleed Qualifiers: GI bleed type/associated pathology: unspecified gastrointestinal hemorrhage type Qualified Code(s): K92.2 - Gastrointestinal hemorrhage, unspecified Is this a current diagnosis for this admission?: Yes Plan: With his recent episodes of bright red blood per rectum, suggestive of lower gastrointestinal bleed. Patient undergoing resuscitative measures with packed RBCs. Will obtain a stat bleeding scan. We will closely follow along with you.
--- NOTE | 2019-03-25 18:34 | RADIOLOGY REPORT (SQ) ---
EXAM DESCRIPTION: NM GI BLEED SCAN COMPLETED DATE/TIME: 03/25/2019 5:50 pm REASON FOR STUDY: marked hematochezia COMPARISON: None. RADIONUCLIDE AND DOSE: 24.6 millicuries Technetium-labeled red blood cells. The route of agent administration: Intravenous. TECHNIQUE: Serial arterial-phase images acquired for 80 seconds immediately following injection of r adionuclide. Additional 60 images acquired at 60 seconds per image. LIMITATIONS: None. FINDINGS: Flow images without focal areas of abnormal radionuclide location. Serial images show no abnormal accumulation of radionuclide up to 2 hours. IMPRESSION: NORMAL RADIONUCLIDE GASTROINTESTINAL BLEEDING STUDY. TECHNICAL DOCUMENTATION: JOB ID: [id number] [employer]- All Rights Reserved Reading location - IP/workstation name: [email or web address]
--- NOTE | 2019-03-25 18:36 | PDOC PROGRESS REPORT ---
Subjective Progress Note for:: 03/25/19 Reason For Visit: GI BLEED WITH ACUTE BLOOD LOSS ANEMIA Physical Exam Vital Signs: Temp Pulse Resp BP Pulse Ox 97.2 F 87 15 110/79 100 03/25/19 16:28 03/25/19 17:07 03/25/19 18:03 03/25/19 18:03 03/25/19 18:03 Intake & Output 03/24/19 03/25/19 03/26/19 06:59 06:59 06:59 Intake Total 550 Output Total 200 Balance 350 Weight 82.7 kg Results Laboratory Results: 03/25/19 09:26 03/25/19 09:26 03/25/19 03/25/19 03/25/19 09:26 09:26 09:26 WBC 8.9 RBC 3.24 L Hgb 9.9 L Hct 29.7 L MCV 92 MCH 30.7 MCHC 33.4 RDW 13.1 Plt Count 185 Seg Neutrophils % 44.0 Sodium 138.8 Potassium 3.7 Chloride 111 H Carbon Dioxide 22 Anion Gap 6 BUN 22 H Creatinine 1.27 H Est GFR ( Amer) > 60 Glucose 132 H Calcium 7.9 L Total Bilirubin 0.5 AST 17 Alkaline Phosphatase 36 L Total Protein 5.5 L Albumin 3.0 L Blood Type A POSITIVE Antibody Screen NEGATIVE Impressions: Chest X-Ray 03/25/19 09:26 IMPRESSION: NO ACUTE RADIOGRAPHIC FINDING IN THE CHEST. Assessment & Plan - Diagnosis (1) GI bleed Qualifiers: GI bleed type/associated pathology: unspecified gastrointestinal hemorrhage type Qualified Code(s): K92.2 - Gastrointestinal hemorrhage, unspecified Is this a current diagnosis for this admission?: Yes Plan: Tagged RBC scan is negative at 2 hours. Patient's gastrointestinal bleed has likely stopped. We will plan an upper endoscopy to exclude upper gastrointestinal source. Discussed with the patient the risk and benefits of the procedure including risk of intestinal injury, bleeding, aspiration, heart lung complications.
[2019-03-25] MEDS ORDERED: ONDANSETRON HCL INJ/PF 4 MG/2 ML SDV ONE ×2 (18:54→21:36)
[2019-03-25] MEDS ORDERED: DIPHENHYDRAMINE HCL 50 MG/ML VIAL ONE ×2 (18:54→21:36)
[2019-03-25] MEDS ORDERED: FLUMAZENIL INJ 0.5 MG/5 ML VIAL ONE ×3 (18:55→21:37)
[2019-03-25] MEDS ORDERED: NALOXONE HCL INJ/PF 0.4 MG/1 ML SDV ONE ×2 (18:55→21:37)
[2019-03-25] MEDS ORDERED: FENTANYL CITRATE INJ/PF 100 MCG/2 ML AMPUL ONE ×2 (18:55→21:36)
[2019-03-25] MEDS ORDERED: MIDAZOLAM 2 MG/2 ML INJ ONE ×2 (18:55→21:36)
[2019-03-25] MEDS ORDERED: GLUCAGON,HUMAN RECOMB 1 MG INJ ONE ×2 (18:56→21:37)
[2019-03-25] MEDS ORDERED: EPINEPHRINE INJ 1 MG/10 ML DISP.SYRIN ONE ×2 (18:56→21:37)
[2019-03-25 19:20] LABS: BLOOD UREA NITROGEN 19 mg/dL (7-20); CALCIUM 7.5 mg/dL (8.4-10.2); GLUCOSE 112 mg/dL (75-110); POTASSIUM 4.2 mmol/L (3.6-5.0)
[2019-03-25 19:25] LABS: ANION GAP 5 (5-19); CARBON DIOXIDE 20 mmol/L (22-30); CHLORIDE 113 mmol/L (98-107)
--- NOTE | 2019-03-25 19:59 | Operative Report ---
Operative Report DATE OF SURGERY: 03/25/19 PREOPERATIVE DIAGNOSIS: Gastrointestinal bleed POSTOPERATIVE DIAGNOSIS: Lower gastrointestinal bleed OPERATION: Esophagogastroduodenoscopy SURGEON: GYPSY MATUTE ANESTHESIA: Moderate Sedation TISSUE REMOVED OR ALTERED: None COMPLICATIONS: None ESTIMATED BLOOD LOSS: None INTRAOPERATIVE FINDINGS: Normal stomach esophagus and duodenum with no blood no erosions and no ulcers PROCEDURE: Informed consent was obtained. Procedure was done in the intensive care unit. IV sedation with Versed and fentanyl was administered. Endoscope was passed via the patient's mouth he was fed down to the second portion of the duodenum. Duodenum appeared to be normal. The stomach appeared to be normal. The esophagus appeared normal. No blood no erosions no ulcerations were seen. Patient tolerated procedure well with no apparent complications. No evidence of upper gastrointestinal bleeding by endoscopy. I suspect that he has had a colonic diverticular bleed. Not actively bleeding by tagged RBC scan. He has mild tachycardia with heart rate hovering around 100 and mild hypotension. I do not think he is fully resuscitated and therefore I will transfuse him another unit of packed RBC. Will observe him closely in the ICU.
--- NOTE | 2019-03-25 21:19 | PDOC PROGRESS REPORT ---
Subjective Progress Note for:: 03/25/19 Subjective:: Patient appears comfortable. Alert. Appropriate. However he had a large bowel dark bloody movement and had initial hypertension with family members in the room. Following which he had persistent tachycardia and relative hypotension. He has no chest pain. Reason For Visit: GI BLEED WITH ACUTE BLOOD LOSS ANEMIA Physical Exam Vital Signs: Temp Pulse Resp BP Pulse Ox 101.4 F H 135 H 25 H 98/59 L 100 03/25/19 21:01 03/25/19 21:01 03/25/19 21:01 03/25/19 21:01 03/25/19 21:01 Intake & Output 03/24/19 03/25/19 03/26/19 06:59 06:59 06:59 Intake Total 550 Output Total 200 Balance 350 Weight 82.7 kg General appearance: PRESENT: no acute distress, cooperative Cardiovascular exam: PRESENT: tachycardia Results Laboratory Results: 03/25/19 09:26 03/25/19 18:54 03/25/19 03/25/19 03/25/19 09:26 09:26 09:26 WBC 8.9 RBC 3.24 L Hgb 9.9 L Hct 29.7 L MCV 92 MCH 30.7 MCHC 33.4 RDW 13.1 Plt Count 185 Seg Neutrophils % 44.0 Sodium 138.8 Potassium 3.7 Chloride 111 H Carbon Dioxide 22 Anion Gap 6 BUN 22 H Creatinine 1.27 H Est GFR ( Amer) > 60 Glucose 132 H Calcium 7.9 L Total Bilirubin 0.5 AST 17 Alkaline Phosphatase 36 L Total Protein 5.5 L Albumin 3.0 L Blood Type A POSITIVE Antibody Screen NEGATIVE 03/25/19 18:54 WBC RBC Hgb Hct MCV MCH MCHC RDW Plt Count Seg Neutrophils % Sodium 138.0 Potassium 4.2 Chloride 113 H Carbon Dioxide 20 L Anion Gap 5 BUN 19 Creatinine 1.06 Est GFR ( Amer) > 60 Glucose 112 H Calcium 7.5 L Total Bilirubin AST Alkaline Phosphatase Total Protein Albumin Blood Type Antibody Screen Impressions: GI Bleed Scan Nuclear Medicine 03/25/19 00:00 IMPRESSION: NORMAL RADIONUCLIDE GASTROINTESTINAL BLEEDING STUDY. Chest X-Ray 03/25/19 09:26 IMPRESSION: NO ACUTE RADIOGRAPHIC FINDING IN THE CHEST. Assessment & Plan - Diagnosis (1) GI bleed Qualifiers: GI bleed type/associated pathology: unspecified gastrointestinal hemorrhage type Qualified Code(s): K92.2 - Gastrointestinal hemorrhage, unspecified Is this a current diagnosis for this admission?: Yes Plan: Recurrent lower GI bleed. Patient being resuscitated with more packed RBCs as well as FFP. Will obtain delayed images on the tagged RBC scan with active scanning as well. CT angiography for bleeding would not be possible to interpret since he received oral contrast earlier in the day. We will obtain a unprepped colonoscopy now. I have discussed with the patient and the patient's about the risk and benefits of the procedure including risk of colon injury.
--- NOTE | 2019-03-25 21:50 | EKG REPORT ---
SEVERITY:- NORMAL ECG - SINUS RHYTHM : Confirmed by: Regina Naranjo MD 25-Mar-2019 21:48:55
--- NOTE | 2019-03-25 23:41 | Operative Report ---
Operative Report DATE OF SURGERY: 03/25/19 PREOPERATIVE DIAGNOSIS: Gastrointestinal bleed POSTOPERATIVE DIAGNOSIS: Gastrointestinal bleed OPERATION: Colonoscopy to beyond the splenic flexure SURGEON: GYPSY MATUTE ANESTHESIA: Moderate Sedation TISSUE REMOVED OR ALTERED: None COMPLICATIONS: None ESTIMATED BLOOD LOSS: None INTRAOPERATIVE FINDINGS: Dark blood throughout the colon that was visualized. PROCEDURE: Informed consent was obtained. Procedure was done at the patient's bedside in the ICU. IV sedation Versed and fentanyl was administered. Digital rectal exam revealed no palpable perianal masses. Endoscope was passed via the patient's anus and the rectum there was copious amount of very dark bloody liquid and debris. The scope was passed through the sigmoid colon where I encountered the same. The fluid was too thick to adequately aspirate. Visualization was extremely difficult due to the dark bloody fluid that cover the colon. The scope was able to be maneuvered to what I thought was beyond the splenic flexure into the transverse colon. Patient was experiencing pain with passage of the scope despite the scope passing with little resistance. Patient requested stoppage of the endoscopy. With his tenuous blood pressure I was reluctant to over sedate the patient. At this point the procedure was aborted. No obvious obstructing masses were noted. Only thing that could be seen was dark blood covering the colon and pulling at the dependent regions.
[2019-03-26 00:06] LABS: HEMOGLOBIN 10.9 g/dL (13.5-17.0); MEAN CORPUSCULAR HEMOGLOBIN 30.4 pg (27.0-33.4); MEAN CORPUSCULAR HGB CONC 34.1 g/dL (32.0-36.0); MEAN CORPUSCULAR VOLUME 89 fl (80-97); RED BLOOD COUNT 3.59 10^6/uL (4.35-5.55); RED CELL DISTRIBUTION WIDTH 13.3 % (11.5-14.0); WHITE BLOOD COUNT 17.4 10^3/uL (4.0-10.5)
[2019-03-26 00:08] LABS: PARTIAL THROMBOPLASTIN TIME 27.6 SEC (23.5-35.8); PROTHROMBIN TIME 17.3 SEC (11.4-15.4)
[2019-03-26 00:19] LABS: BLOOD UREA NITROGEN 18 mg/dL (7-20); CARBON DIOXIDE 16 mmol/L (22-30); CHLORIDE 116 mmol/L (98-107); GLUCOSE 121 mg/dL (75-110); POTASSIUM 3.9 mmol/L (3.6-5.0)
[2019-03-26 00:27] LABS: PLATELET COUNT 97 10^3/uL (150-450)
[2019-03-26 00:33] LABS: ANION GAP 4 (5-19); CALCIUM 6.8 mg/dL (8.4-10.2)
[2019-03-26] MEDS ORDERED: DEXTROSE 5%-WATER 250 ML with NOREPINEPHRINE BITARTRATE 4 MG IV PRN ×2 (00:51)
[2019-03-26] MEDS ORDERED: NOREPINEPHRINE BITARTRATE INJ/PF 4 MG/4 ML SDV IV ONE (00:51)
[2019-03-26] MEDS ORDERED: FENTANYL CITRATE INJ/PF 100 MCG/2 ML AMPUL ONE (01:07)
[2019-03-26] MEDS ORDERED: LIDOCAINE 1% INJ-PF (10 MG/ML) 30 ML SDV ONE (01:08)
--- NOTE | 2019-03-26 01:20 | RADIOLOGY REPORT (SQ) ---
EXAM DESCRIPTION: XR ABDOMEN 2 VIEWS SUPINE ERECT COMPLETED DATE/TME: 03/25/2019 00:00 CLINICAL HISTORY: 63 years, Male, evaluate oral contrast COMPARISON: None. NUMBER OF VIEWS: 2 TECHNIQUE: Supine and erect views of the abdomen LIMITATIONS: None. FINDINGS: The bowel gas pattern is nonspecific. Catheter projects over the pelvis. Surgical clips in the pelvis. Phleboliths in the pelvis. Small amount of residual contrast within the colon/hepatic flexure. No free air IMPRESSION: Minimal residual contrast in the colon/hepatic flexure. Nonspecific gas pattern copyright 2010 [employer]- All Rights Reserved
--- NOTE | 2019-03-26 01:24 | PDOC PROGRESS REPORT ---
Subjective Progress Note for:: 03/26/19 Reason For Visit: GI BLEED WITH ACUTE BLOOD LOSS ANEMIA Physical Exam Vital Signs: Temp Pulse Resp BP Pulse Ox 98.7 F 110 H 20 85/56 L 95 03/25/19 23:00 03/25/19 23:25 03/25/19 23:25 03/25/19 23:25 03/25/19 23:25 Intake & Output 03/24/19 03/25/19 03/26/19 06:59 06:59 06:59 Intake Total 1250 Output Total 200 Balance 1050 Weight 82.7 kg Results Laboratory Results: 03/25/19 23:54 03/25/19 23:54 03/25/19 03/25/19 03/25/19 09:26 09:26 09:26 WBC 8.9 RBC 3.24 L Hgb 9.9 L Hct 29.7 L MCV 92 MCH 30.7 MCHC 33.4 RDW 13.1 Plt Count 185 Seg Neutrophils % 44.0 Sodium 138.8 Potassium 3.7 Chloride 111 H Carbon Dioxide 22 Anion Gap 6 BUN 22 H Creatinine 1.27 H Est GFR ( Amer) > 60 Glucose 132 H Calcium 7.9 L Total Bilirubin 0.5 AST 17 Alkaline Phosphatase 36 L Total Protein 5.5 L Albumin 3.0 L Blood Type A POSITIVE Antibody Screen NEGATIVE 03/25/19 03/25/19 03/25/19 18:54 23:54 23:54 WBC 17.4 H RBC 3.59 L Hgb 10.9 L Hct 32.0 L MCV 89 MCH 30.4 MCHC 34.1 RDW 13.3 Plt Count 97 L Seg Neutrophils % Sodium 138.0 136.2 L Potassium 4.2 3.9 Chloride 113 H 116 H Carbon Dioxide 20 L 16 L Anion Gap 5 4 L BUN 19 18 Creatinine 1.06 1.05 Est GFR ( Amer) > 60 > 60 Glucose 112 H 121 H Calcium 7.5 L 6.8 L* Total Bilirubin AST Alkaline Phosphatase Total Protein Albumin Blood Type Antibody Screen Impressions: GI Bleed Scan Nuclear Medicine 03/25/19 00:00 IMPRESSION: NORMAL RADIONUCLIDE GASTROINTESTINAL BLEEDING STUDY. Chest X-Ray 03/25/19 09:26 IMPRESSION: NO ACUTE RADIOGRAPHIC FINDING IN THE CHEST. Assessment & Plan - Diagnosis (1) GI bleed Qualifiers: GI bleed type/associated pathology: unspecified gastrointestinal hemorrhage type Qualified Code(s): K92.2 - Gastrointestinal hemorrhage, unspecified Is this a current diagnosis for this admission?: Yes Plan: Patient continues to have intermittent episodes of blood per rectum with associated tachycardia and hypotension, responsive to blood transfusions. Delayed images on tagged RBC scan demonstrates accumulation of tracer on the right abdomen that appears to move cephalad slightly. Colonoscopy demonstrates copious amount of dark blood from the rectum to what appears to be the transverse colon. Colonoscopy was not able to be completed. Likely the bleeding source is a right colonic source but there is no definitive evidence. I have discussed with the patient's and the patient's family about further course of action. One option is to proceed with a right hemicolectomy however it incurs a significant risk that the bleeding sources not removed with the specimen. CT angiography for bleeding is not possible in the face of oral contrast that the patient has ingested. However an arteriogram may be possible and perhaps an embolization procedure by interventional radiology may be possible. Interventional vascular radiology is not available at our institution and I have discussed possible transfer to a tertiary care center with the family and the family are agreeable. I have placed a call to [facility] and will await their phone call. I have also discussed this case with the hospitalist on-call who is unfamiliar with the patient but will contact the back tufter about potential transfer.
--- NOTE | 2019-03-26 01:27 | Progress Note ---
Provider Note Provider Note: Procedure note: Right femoral central line Indication: hypotension, hemorrhagic shock, lower GI bleed Technique: area was prepped and draped in sterile fashion. Full barrier precautions were used. Pt was anesthetized with approx 5 cc of 1% lidocaine. The right femoral vein was cannulated without any difficulty. The guidewire was inserted through the needle and the needle was withdrawn. The tissue dilator was inserted and removed. The triple lumen catheter was inserted over the guidewire and the guidewire was withdrawn. The catheter was sutured into place. There was good blood flow in all ports. Pt tolerated the procedure well.
--- NOTE | 2019-03-26 01:35 | PDOC TRANSFER SUMMARY ---
General Admission Date/PCP: 03/25/19 11:07 VENKAT PHILLIPS DO Resuscitation Status: Full Code - Transfer Diagnosis (1) Hemorrhagic shock Is this a current diagnosis for this admission?: Yes (2) Acute blood loss anemia Is this a current diagnosis for this admission?: Yes (3) GI bleed Is this a current diagnosis for this admission?: Yes - Transfer Medications Home Medications: Alpha Lipoic Acid [Alpha Lipoic Acid 200 mg Tablet] 200 mg PO DAILY 03/25/19 Aspirin [Ecotrin 81 mg EC Tablet] 81 mg PO DAILY 03/25/19 Atorvastatin Calcium [Lipitor 20 mg Tablet] 20 mg PO QHS 03/25/19 Cholecalciferol (Vitamin D3) [Vitamin D3 5000 unit Capsule] 5,000 unit PO DAILY 03/25/19 Cyanocobalamin (Vitamin B-12) [Vitamin B-12 Inj 1000 Mcg/1 ml Vial] 1,000 mcg IM Q14D 03/25/19 Glutamine [L-Glutamine] 500 mg PO DAILY 03/25/19 [place]-3S/Dha/Epa/Fish Oil [Fish Oil 1,200 mg Softgel] 1 each PO DAILY 03/25/19 Prasterone (Dhea)/Calcium Carb [Dhea 50 Mg Tablet] 1 each PO DAILY 03/25/19 Thyroid,Pork [Account Management Specialist Thyroid] 15 mg PO DAILY 03/25/19 Topiramate [Trokendi Xr] 100 mg PO QHS 03/25/19 Turmeric/Turmeric Root Extract [Turmeric 500 mg Capsule] 2 each PO BID 03/25/19 Transfer Medications: Current Medications Sodium Chloride (Nacl 0.9% 250 Ml Iv Soln) 250 mls @ 30 mls/hr IV .DURING CASTILLO SFUSION PRN PRN Reason: THIS MED IS NOT "PRN" Stop: 03/26/19 09:25 Sodium Chloride (Nacl 0.9% 250 Ml Iv Soln) 250 mls @ 0 mls/hr IV CONTINUOUS PRN PRN Reason: AFTER EACH UNIT Stop: 03/26/19 09:25 Sodium Chloride (Nacl 0.9% 250 Ml Iv Soln) 250 mls @ 0 mls/hr IV CONTINUOUS PRN PRN Reason: AFTER EACH UNIT Stop: 03/26/19 10:51 Sodium Chloride (Nacl 0.9% 1000 Ml Iv Soln) 1,000 mls @ 175 mls/hr IV CONTINUOUS PRN PRN Reason: THIS MED IS NOT "PRN" Stop: 04/24/19 13:00 Last Admin: 03/25/19 15:19 Dose: 175 mls/hr Documented by: Pantoprazole Sodium 80 mg/ (Sodium Chloride) 100 mls @ 10 mls/hr IV CONTINUOUS PRN PRN Reason: THIS MED IS NOT "PRN" Stop: 04/01/19 13:21 Last Admin: 03/25/19 18:05 Dose: 10 mls/hr Documented by: Norepinephrine Bitartrate 4 mg (/ Dextrose) 250 mls @ 0 mls/hr IV CONTINUOUS PRN; Protocol PRN Reason: THIS MED IS NOT "PRN" Stop: 04/25/19 00:50 Piperacillin Sod/Tazobactam (Sod 3.375 gm/ Sodium Chloride) 100 mls @ 200 mls/hr IV Q6 ERIC Stop: 04/02/19 01:26 Ondansetron HCl (Zofran Odt 4 Mg Tablet) 4 mg PO Q4HP PRN PRN Reason: FOR NAUSEA/VOMITING Stop: 04/24/19 13:04 Last Admin: 03/25/19 15:59 Dose: 4 mg Documented by: Sodium Chloride (Saline Flush 2.5 Ml Monoject Prefil Syrin) 2.5 ml IV Q8 ERIC Stop: 04/24/19 13:59 Last Admin: 03/26/19 01:04 Dose: Not Given Documented by: - Allergies Allergies/Adverse Reactions: No Known Allergies Allergy (Verified 02/22/17 14:34) - Diet/Activity Discharge Diet: Other (Comments) - NPO Hospital Course Hospital Course: Pt is a 63 yo man who was transferred to the ICU after a rapid response was called on 03/25/19 for active lower GI bleeding. Pt has received a total of 5 units of PRBC. Pt was seen by surgery. A bleeding scan was done which showed no active bleeding. Pt then had and EGD done which showed no active bleeding. Pt then underwent a colonoscopy which was suboptimal due to the lack of prep. The decision was made to transfer the patient to a tertiary care center. I placed a right femoral central line and started pt on levophed prior to transfer. He has remained awake and alert the entire time. Pt to be transferred to [facility], ICU. Dr. Atkinson is that accepting physician. Physical Exam Vital Signs: Temp Pulse Resp BP Pulse Ox 98.7 F 110 H 20 85/56 L 95 03/25/19 23:00 03/25/19 23:25 03/25/19 23:25 03/25/19 23:25 03/25/19 23:25 Intake & Output 03/24/19 03/25/19 03/26/19 06:59 06:59 06:59 Intake Total 1250 Output Total 200 Balance 1050 Weight 82.7 kg General appearance: PRESENT: no acute distress, well-developed, well-nourished, other - pale appearing Head exam: PRESENT: atraumatic, normocephalic Cardiovascular exam: PRESENT: RRR GI/Abdominal exam: PRESENT: soft, other - no rebound, no guarding Extremities exam: PRESENT: other - no edema Neurological exam: PRESENT: alert, awake Results Laboratory Results: 03/25/19 23:54 03/25/19 23:54 03/25/19 03/25/19 03/25/19 09:26 09:26 09:26 WBC 8.9 RBC 3.24 L Hgb 9.9 L Hct 29.7 L MCV 92 MCH 30.7 MCHC 33.4 RDW 13.1 Plt Count 185 Seg Neutrophils % 44.0 Sodium 138.8 Potassium 3.7 Chloride 111 H Carbon Dioxide 22 Anion Gap 6 BUN 22 H Creatinine 1.27 H Est GFR ( Amer) > 60 Glucose 132 H Calcium 7.9 L Total Bilirubin 0.5 AST 17 Alkaline Phosphatase 36 L Total Protein 5.5 L Albumin 3.0 L Blood Type A POSITIVE Antibody Screen NEGATIVE 03/25/19 03/25/19 03/25/19 18:54 23:54 23:54 WBC 17.4 H RBC 3.59 L Hgb 10.9 L Hct 32.0 L MCV 89 MCH 30.4 MCHC 34.1 RDW 13.3 Plt Count 97 L Seg Neutrophils % Sodium 138.0 136.2 L Potassium 4.2 3.9 Chloride 113 H 116 H Carbon Dioxide 20 L 16 L Anion Gap 5 4 L BUN 19 18 Creatinine 1.06 1.05 Est GFR ( Amer) > 60 > 60 Glucose 112 H 121 H Calcium 7.5 L 6.8 L* Total Bilirubin AST Alkaline Phosphatase Total Protein Albumin Blood Type Antibody Screen Impressions: Abdomen X-Ray 03/25/19 00:00 IMPRESSION: Minimal residual contrast in the colon/hepatic flexure. Nonspecific gas pattern copyright 2011 [employer]- All Rights Reserved GI Bleed Scan Nuclear Medicine 03/25/19 00:00 IMPRESSION: NORMAL RADIONUCLIDE GASTROINTESTINAL BLEEDING STUDY. Chest X-Ray 03/25/19 09:26 IMPRESSION: NO ACUTE RADIOGRAPHIC FINDING IN THE CHEST. Plan Time Spent: Greater than 30 Minutes
[2019-03-26] MEDS ORDERED: PIPERACILLIN/TAZOBACTAM 3.375 GM VIAL IV PRN (01:36)
[2019-03-26] MEDS ORDERED: CALCIUM CHLORIDE 10% PF/INJ 1000 MG/10 ML SDV IV ONE (02:00)
[2019-03-26] MEDS ORDERED: PIPERACILLIN/TAZOBACTAM 3.375 GM VIAL IV ONE (02:48)
[2019-03-26] MEDS ORDERED: PIPERACILLIN SODIUM/TAZOBACTAM 3.375 GM in NORMAL SALINE 100 ML IV SCH (03:00)
[2019-03-26 04:21] VITALS: BP 112/78
== END 2019-03-26 03:13 | disposition short-term general hospital (02) | DRG 377 ==
LOC: ER 09:21 → EH 11:07 → 3N 12:15 → ICU 13:55
PROVIDERS: ADMIT Hospitalist; ATTEND Internal Medicine
PROC: 30233N1 Transfusion of Nonautologous Red Blood Cells into Peripheral Vein, Percutaneous Approach (ICD-10-PCS; 2019-03-25)
PROC: 0DJ08ZZ Inspection of Upper Intestinal Tract, Via Natural or Artificial Opening Endoscopic (ICD-10-PCS; 2019-03-25)
PROC: 0DJD8ZZ Inspection of Lower Intestinal Tract, Via Natural or Artificial Opening Endoscopic (ICD-10-PCS; 2019-03-25)
PROC: 30233K1 Transfusion of Nonautologous Frozen Plasma into Peripheral Vein, Percutaneous Approach (ICD-10-PCS; principal; 2019-03-25 19:00)
PROC: 06HM33Z Insertion of Infusion Device into Right Femoral Vein, Percutaneous Approach (ICD-10-PCS; 2019-03-26)
DX: K92.1 Melena (principal); R57.1 Hypovolemic shock; D62 Acute posthemorrhagic anemia; E78.00 Pure hypercholesterolemia, unspecified; N40.0 Benign prostatic hyperplasia without lower urinary tract symptoms; R31.9 Hematuria, unspecified; G43.909 Migraine, unspecified, not intractable, without status migrainosus; R41.82 Altered mental status, unspecified; Z79.82 Long term (current) use of aspirin; Z79.899 Other long term (current) drug therapy
CPT/HCPCS: 36415; 36430; 71045; 74019; 78278; 80053; 82962; 85025; 85610; 85730; 86850; 86900; 86901; 86920; 93005; 93010; 96360; 99291; A9560; C1751; J0171; J1200; J1610; J1642; J2250; J2310; J2405; J3010; J3490; J7030; J7040; J7050; P9016; P9017; Q9969; S0119; S0164

== ENCOUNTER 2019-12-27 16:25 | Emergency (ER) | payer OTHER ==
[2019-12-27] MEDS ORDERED: ASPIRIN 81 MG TABLET, CHEWABLE PO ONE (17:48)
[2019-12-27] MEDS ORDERED: LIDOCAINE 2% VISCOUS SOLN 15 ML UDCUP PO ONE (17:49)
[2019-12-27] MEDS ORDERED: MAG HYDROX/AL HYDROX/SIMETH SUSP 30 ML UDCUP PO ONE (17:49)
--- NOTE | 2019-12-27 17:53 | ER Document Report ---
ED Cardiac - General Mode of Arrival: Ambulatory Information source: Patient TRAVEL OUTSIDE OF THE [place] IN LAST 30 DAYS: No - HPI Patient complains to provider of: Chest pain Chest pain location: Substernal Quality of pain: Pressure Pain level currently: 3 Chest pain precipitating factors: At Rest Cardiac risk factors: Dyslipidemia. denies: Diabetes, Hypertension, Smoker, Hx SD Associated symptoms: Shortness of breath. denies: Anxiety, Back pain, Diaphoresis, Neck pain, Palpitations, Weakness Exacerbated by: Denies Relieved by: Nothing Similar symptoms previously: Yes Recently seen / treated by doctor: No <KRISTAL OSPINA - Last Filed: 12/27/19 19:47> <SHIREEN PINA - Last Filed: 12/27/19 21:57> - General Chief Complaint: Chest Pain Stated Complaint: CHEST PAIN,SHORTNESS OF BREATH Time Seen by Provider: 12/27/19 17:29 Primary Care Provider: VENKAT PHILLIPS DO [Primary Care Provider] - Follow up as needed Notes: Patient presents complaining of chest pressure to the midsternal area since yesterday at 6:30 in the morning. Patient reports some mild shortness of breath with dizziness in which she describes not feeling right. Patient denies any cough or cold symptoms. Patient denies any nausea or vomiting. Patient does report a history of acid reflux and is uncertain if his symptoms may be attributed to this as he has had similar symptoms in the past and was diagnosed with an exacerbation of his reflux. Patient also has a history of dyslipidemia. (KRISTAL OSPINA) - Related Data Allergies/Adverse Reactions: No Known Allergies Allergy (Verified 12/27/19 17:07) Past Medical History - General Information source: Patient - Social History Smoking Status: Never Smoker Chew tobacco use (# tins/day): No Frequency of alcohol use: Occasional Drug Abuse: None Occupation: retired Family History: None, Reviewed & Not Pertinent Patient has homicidal ideation: No - Past Medical History Cardiac Medical History: Reports: Hx Hypercholesterolemia Neurological Medical History: Reports: Hx Migraine Endocrine Medical History: Denies: Hx Diabetes Mellitus Type 2, Hx Hypothyroidism Renal/ Medical History: Denies: Hx Peritoneal Dialysis GI Medical History: Reports: Hx Gastroesophageal Reflux Disease Skin Medical History: Denies Hx Eczema, Denies Hx Psoriasis Past Surgical History: Reports: Hx Tonsillectomy, Hx Urinary Tract Surgery, Other - Surgery for benign prostate disease. - Immunizations Hx Diphtheria, Pertussis, Tetanus Vaccination: Yes Hx Pneumococcal Vaccination: 06/23/10 <KRISTAL OSPINA - Last Filed: 12/27/19 19:47> Review of Systems - Review of Systems Constitutional: No symptoms reported. denies: Fever EENT: No symptoms reported Cardiovascular: Chest pain, Dizziness Respiratory: Short of breath. denies: Cough Gastrointestinal: No symptoms reported. denies: Abdominal pain, Nausea, Vomiting Genitourinary: No symptoms reported Male Genitourinary: No symptoms reported Musculoskeletal: No symptoms reported. denies: Back pain Skin: No symptoms reported Hematologic/Lymphatic: No symptoms reported Neurological/Psychological: No symptoms reported <KRISTAL OSPINA - Last Filed: 12/27/19 19:47> Physical Exam - General General appearance: Appears well, Alert In distress: None - HEENT Head: Normocephalic, Atraumatic Eyes: Normal Conjunctiva: Normal Nasal: Normal Mouth/Lips: Normal Neck: Normal, Supple. No: Lymphadenopathy - Respiratory Respiratory status: No respiratory distress Chest status: Tender Breath sounds: Normal. No: Rales, Rhonchi, Stridor, Wheezing Chest palpation: Normal. No: Tender - Cardiovascular Rhythm: Regular Heart sounds: S1 appreciated, S2 appreciated Murmur: No - Abdominal Inspection: Normal Distension: No distension Bowel sounds: Normal Tenderness: Nontender Organomegaly: No organomegaly - Back Back: Normal, Nontender. No: CVA tenderness - Extremities General upper extremity: Normal inspection, Normal strength General lower extremity: Normal inspection, Normal strength. No: Edema - Neurological Neuro grossly intact: Yes Cognition: Normal Cubero Coma Scale Eye Opening: Spontaneous Cubero Coma Scale Verbal: Oriented Jhony Coma Scale Motor: Obeys Commands Jhony Coma Scale Total: 15 - Psychological Associated symptoms: Normal affect, Normal mood - Skin Skin Temperature: Warm Skin Moisture: Dry Skin Color: Normal <KRISTAL OSPINA - Last Filed: 12/27/19 19:47> - Vital signs Vitals: Temp 97.8 F 12/27/19 16:26 Course - Laboratory Result Diagrams: 12/27/19 17:26 12/27/19 17:26 - Diagnostic Test Radiology reviewed: Image reviewed, Reports reviewed - EKG Interpretation by Ca EKG shows normal: Sinus rhythm Rate: Normal Rhythm: NSR When compared to previous EKG there are: No significant change <KRISTAL OSPINA - Last Filed: 12/27/19 19:47> - Laboratory Result Diagrams: 12/27/19 17:26 12/27/19 17:26 <SHIREEN PINA - Last Filed: 12/27/19 21:57> - Re-evaluation Re-evalutation: 12/27/19 19:07 Patient reports improvement of pain symptoms after GI cocktail. Patient reports pain is much better although not completely resolved. Patient declines needing any medication for his symptoms at this time. (KRISTAL OSPINA) - Vital Signs Vital signs: Temp Pulse Resp BP Pulse Ox 98.1 F 69 12 127/89 H 98 12/27/19 16:58 12/27/19 16:58 12/27/19 21:01 12/27/19 21:01 12/27/19 21:01 - Laboratory Laboratory results interpreted by me: 12/27/19 12/27/19 17:26 18:07 Sodium 136.9 L Ur Leukocyte Esterase TRACE H - EKG Interpretation by Me Additional EKG results interpreted by me: 12/27/19 19:07 Sinus rhythm with a rate of 75, QTc 416, no acute ischemic changes (KRISTAL OSPINA) Discharge <KRISTAL OSPINA - Last Filed: 12/27/19 19:47> <SHIREEN PINA - Last Filed: 12/27/19 21:57> - Discharge Clinical Impression: Chest pain Qualifiers: Chest pain type: unspecified Qualified Code(s): R07.9 - Chest pain, unspecified GERD (gastroesophageal reflux disease) Qualifiers: Esophagitis presence: without esophagitis Qualified Code(s): K21.9 - Gastro- esophageal reflux disease without esophagitis Condition: Stable Disposition: HOME, SELF-CARE Instructions: Chest Pain of Unclear Cause ([facility]), Reflux Disease (GERD) ([facility]) Additional Instructions: Your work-up today does not show any concerning findings. Based on your symptoms, your response to treatment, this seems more likely to be inflammation of the upper gastrointestinal tract. However because of your age and symptoms we also highly recommend that you call the cardiology consultants listed or your preferred cardiology consultants tomorrow to establish close follow-up and additional management/testing. The recommendation is that you take the Carafate along with your current antacid therapy, you can also take Pepcid, Rolaids, Tums, Maalox, etc. if needed. You can take Tylenol for pain. Avoid NSAIDs, alcohol, smoking, caffeine, spicy food. Start with clear fluids, progress to bland diet. Return if you worsen including returned/severe worsening pain, vomiting, vomiting blood, black stools, severe pain, fever of 100.4 or greater, or any other concerning or worsening symptoms. Prescriptions: Sucralfate [Carafate 1 gm Tablet] 1 gm PO QID #20 tablet Referrals: ABEL LAUREANO MD [ACTIVE STAFF] - Follow up tomorrow
--- NOTE | 2019-12-27 17:54 | EKG REPORT ---
SEVERITY:- NORMAL ECG - SINUS RHYTHM : Confirmed by: Rusty Thomas MD 27-Dec-2019 17:53:45
[2019-12-27] MEDS ORDERED: ASPIRIN 81 MG TABLET, CHEWABLE ONE (18:05)
[2019-12-27 18:10] LABS: ABSOLUTE BASOPHILS # (AUTO) 0.1 10^3/uL (0.0-0.2); ABSOLUTE EOSINOPHILS # (AUTO) 0.2 10^3/uL (0.0-0.6); ABSOLUTE LYMPHOCYTES (AUTO) 2.3 10^3/uL (0.5-4.7); ABSOLUTE MONOCYTES (AUTO) 0.6 10^3/uL (0.1-1.4); BASOPHILS % (AUTO) 0.8 % (0-2); EOSINOPHILS % (AUTO) 2.8 % (0-6); HEMATOCRIT 39.7 % (37.9-51.0); HEMOGLOBIN 13.5 g/dL (13.5-17.0); MEAN CORPUSCULAR HEMOGLOBIN 30.2 pg (27.0-33.4); MEAN CORPUSCULAR HGB CONC 33.9 g/dL (32.0-36.0); MEAN CORPUSCULAR VOLUME 89 fl (80-97); PLATELET COUNT 221 10^3/uL (150-450); RED BLOOD COUNT 4.46 10^6/uL (4.35-5.55); RED CELL DISTRIBUTION WIDTH 13.5 % (11.5-14.0); SEGMENTED NEUTROPHILS % (AUTO) 56.4 % (42-78); TOTAL CELLS COUNTED % (AUTO) 100 %; WHITE BLOOD COUNT 7.1 10^3/uL (4.0-10.5)
[2019-12-27 18:14] LABS: ALBUMIN 4.3 g/dL (3.5-5.0); ALKALINE PHOSPHATASE 49 U/L (38-126); ANION GAP 6 (5-19); ASPARTATE AMINO TRANSFERASE 26 U/L (17-59); BILIRUBIN,TOTAL 0.5 mg/dL (0.2-1.3); BLOOD UREA NITROGEN 16 mg/dL (7-20); CALCIUM 9.2 mg/dL (8.4-10.2); CARBON DIOXIDE 25 mmol/L (22-30); CHLORIDE 106 mmol/L (98-107); GLUCOSE 95 mg/dL (75-110); POTASSIUM 4.2 mmol/L (3.6-5.0); TOTAL PROTEIN 7.2 g/dL (6.3-8.2)
[2019-12-27 18:41] LABS: APPEARANCE,URINE CLEAR; BILIRUBIN,URINE NEGATIVE (NEGATIVE); COLOR,URINE YELLOW; GLUCOSE, URINE NEGATIVE (NEGATIVE); KETONES,URINE NEGATIVE (NEGATIVE); LEUKOCYTE ESTERASE,URINE TRACE (NEGATIVE); NITRITE,URINE NEGATIVE (NEGATIVE); PROTEIN,URINE NEGATIVE (NEGATIVE); URINE SPECIFIC GRAVITY 1.005; UROBILINOGEN,URINE NEGATIVE mg/dL (<2.0)
--- NOTE | 2019-12-27 18:59 | RADIOLOGY REPORT (SQ) ---
EXAM DESCRIPTION: CHEST SINGLE VIEW IMAGES COMPLETED DATE/TIME: 12/27/2019 5:17 pm REASON FOR STUDY: cp COMPARISON: 03/25/2019 EXAM PARAMETERS: NUMBER OF VIEWS: One view. TECHNIQUE: Single frontal radiographic view of the chest acquired. RADIATION DOSE: NA LIMITATIONS: None. FINDINGS: LUNGS AND PLEURA: No opacities, masses or pneumothorax. No pleural effusion. MEDIASTINUM AND HILAR STRUCTURES: No masses. Contour normal. HEART AND VASCULAR STRUCTURES: Heart normal in size. Normal vasculature. BONES: No acute findings. HARDWARE: None in the chest. OTHER: No other significant finding. IMPRESSION: NO ACUTE RADIOGRAPHIC FINDING IN THE CHEST. TECHNICAL DOCUMENTATION: JOB ID: [id number] 2010 [employer]- All Rights Reserved Reading location - IP/workstation name: [email or web address]
[2019-12-27 22:05] VITALS: BP 125/91
== END 2019-12-27 22:17 | disposition home or self-care (01) ==
LOC: ER 16:25
DX: R07.9 Chest pain, unspecified (principal); K21.9 Gastro-esophageal reflux disease without esophagitis; R06.02 Shortness of breath; R42 Dizziness and giddiness; E78.00 Pure hypercholesterolemia, unspecified
CPT/HCPCS: 93005; 99284; 36415; 83690; 83735; 85025; 80053; 81001; 84484; 85379; 71045; 93010; J3490